=== PATIENT | female | born 1965 ===

== ENCOUNTER 2023-12-05 05:51 | Emergency (ER) | payer OTHER ==
[~2023-12-05] VITALS: Ht 170.2 cm; Wt 68.0 kg
[2023-12-05] MEDS ORDERED: MIRALAX17 GM PO (06:11)
[2023-12-05] MEDS ORDERED: OLAN2.5 PO (06:11)
[2023-12-05] MEDS ORDERED: TRAZ50 PO (06:12)
[2023-12-05] MEDS ORDERED: PROP10 PO (06:12)
[2023-12-05] MEDS ORDERED: DEXTROAMPHETAMI10 M1 PO (06:13)
[2023-12-05] MEDS ORDERED: GABA400 PO (06:14)
[2023-12-05] MEDS ORDERED: CLIMARA1 EACH PO (06:14)
[2023-12-05] MEDS ORDERED: Prozac20 MG PO (06:14)
[2023-12-05] MEDS ORDERED: LIDO700A20 TOP (06:15)
[2023-12-05] MEDS ORDERED: PROG100 PO (06:15)
[2023-12-05] MEDS ORDERED: MELA3 PO (06:15)
[2023-12-05] MEDS ORDERED: PYRI100 PO (06:15)
[2023-12-05] MEDS ORDERED: AMIT25 PO (06:16)
[2023-12-05] MEDS ORDERED: CHLO25A PO (06:16)
[2023-12-05] MEDS ORDERED: HYDPAM50 PO (06:17)
[2023-12-05] MEDS ORDERED: Prochlorperazine Edisylate 10 mg Vial IV ONE (07:55)
[2023-12-05] MEDS ORDERED: Ketorolac Tromethamine 30mg Vial IV ONE (07:55)
[2023-12-05] MEDS ORDERED: Droperidol 5 mg/2 ml Vial IV ONE (10:50)
[2023-12-05] MEDS ORDERED: HyDROXyzine HCl 25 MG Tab PO ONE (11:35)
== END 2023-12-05 12:55 | disposition home or self-care (01) ==
LOC: ER 05:51
DX: S00.03XA Contusion of scalp, initial encounter (principal); W18.30XA Fall on same level, unspecified, initial encounter; F43.10 Post-traumatic stress disorder, unspecified
CPT/HCPCS: 70450; 93005; 93010; 96374; 96375; 99284-25; A9270; J0780; J1790; J1885